=== PATIENT | female | born 2000 | race Caucasian/White ===

== ENCOUNTER 2025-04-24 07:45 | Outpatient (RCR) | payer MEDICAID, SELFPAY | END 2025-05-02 23:59 | disposition home or self-care (01) | LOC: SCTC 07:45 | PROVIDERS: PCP Physician Assistant; Referring Provider Internal Medicine Hematology & Oncology; Visit Provider Nurse Practitioner Family | DX: D75.839 Thrombocytosis, unspecified (principal); E61.1 Iron deficiency; R12 Heartburn | CPT/HCPCS: 99213; G0463 ==

== ENCOUNTER 2025-05-28 08:22 | Outpatient (RCR) | payer MEDICAID, SELFPAY | END 2025-06-02 23:59 | disposition home or self-care (01) | LOC: SCTC 08:22 | PROVIDERS: PCP Physician Assistant; Referring Provider Physician Assistant; Visit Provider Nurse Practitioner Family | DX: Z09 Encounter for follow-up examination after completed treatment for conditions other than malignant neoplasm (principal); Z86.2 Personal history of diseases of the blood and blood-forming organs and certain disorders involving the immune mechanism; R12 Heartburn | CPT/HCPCS: 99212; G0463 ==

== ENCOUNTER 2025-08-19 14:45 | Outpatient (RCR) | payer MEDICAID, SELFPAY | END 2025-09-01 23:59 | disposition home or self-care (01) | LOC: SCTC 14:45 | PROVIDERS: PCP Physician Assistant; Referring Provider Physician Assistant; Visit Provider Nurse Practitioner Family | DX: D50.9 Iron deficiency anemia, unspecified (principal); R12 Heartburn | CPT/HCPCS: 99212; G0463 ==